=== PATIENT | female | born 1985 | race American Indian/Alaskan Native ===

== ENCOUNTER 2019-03-07 18:18 | Emergency (ER) | payer BC ==
--- NOTE | 2019-03-07 18:27 | Event Note ---
ED Screening Note Date of service: 03/07/19 Time: 18:22 ED Screening Note: 33 y/o female comes in for head injury and left arm pain s/p fall off horse. This initial assessment/diagnostic orders/clinical plan/treatment(s) is/are subject to change based on patients health status, clinical progression and re- assessment by fellow clinical providers in the ED. Further treatment and workup at subsequent clinical providers discretion. Patient/guardian urged not to elope from the ED as their condition may be serious if not clinically assessed and managed. Initial orders include:
[2019-03-07] MEDS ORDERED: PERCOCET 5/325 PO ONE (18:29)
--- NOTE | 2019-03-07 19:06 | XRay Report ---
HISTORY: Pain and swelling distal forearm COMPARISON: None. TECHNIQUE: 2 views FINDINGS: Bones: No fracture or dislocation. Joint spaces: Maintained. Soft tissues: No significant abnormality. Additional findings: None. IMPRESSION: 1. No significant abnormality. Signer Name: Nicolas Vann MD Signed: 03/07/2019 7:01 PM Workstation Name: [id number]
--- NOTE | 2019-03-07 19:39 | Cat Scan Report ---
CT CERVICAL SPINE WITHOUT CONTRAST INDICATION / CLINICAL INFORMATION: Trauma. Patient fell sustaining neck injury. Neck pain. TECHNIQUE: Axial CT images were obtained through the cervical spine. Sagittal and coronal reformatted images wer e produced. All CT scans at this location are performed using CT dose reduction for ALARA by means of automated exposure control. COMPARISON: None available. FINDINGS: OVERVIEW: There is no indication of fracture or traumatic subluxation. ALIGNMENT: Loss of the normal cervical lordosis is noted. Patient's head is tilted towards the left. No additional abnormalities of alignment are identified. VERTEBRAE: Incidental note is made of incomplete posterior arch of C1 vertebral body. This is on a de velopmental basis. Vertebral morphology is otherwise fairly well-maintained. DISC SPACES: Disc height is fairly well-maintained throughout the cervical region. INDIVIDUAL LEVEL ANALYSIS: C2-3:No abnormality. C3-4:No abnormality. C4-5: Small posterior osteophyte lateralizes towards the right. Central spinal canal and neuroforamin a remain adequate in size. C5-6:No abnormality. C6-7:No abnormality. C7-T1:No abnormality. CRANIOCERVICAL JUNCTION:No significant abnormality. SPINAL CANAL: No indication of central canal stenosis. PARASPINAL SOFT TISSUES: No significant abnormality. LUNG APICES: No significant abnormality of visualized lungs. IMPRESSION: 1. No indication of fracture or traumatic subluxation. Signer Name: Daniel Haas MD Signed: 03/07/2019 7:34 PM Workstation Name: [id number]
--- NOTE | 2019-03-07 19:43 | Emergency Department Report ---
ED Fall HPI - General Chief Complaint: Fall Stated Complaint: FELL OFF HORSE/BODY PAIN Time Seen by Provider: 03/07/19 18:22 Source: patient Mode of arrival: Ambulatory - History of Present Illness Initial Comments: Patient is a 33-year-old female presents to the emergency room after a fall off a horse that occurred just prior to arrival. She was riding a horse up a hill when it began to start galloping and she fell off the horse. States she caught herself with her left hand and hit the left side of her face on the ground. She is complaining of left facial pain, left wrist, and left hand pain. she denies any loss of consciousness, weakness, numbness, vision changes, any other injuries. She states she has been ambulatory. Patient states that she also did experience bleeding from her lip. - Related Data Previous Rx's Medication Instructions Recorded Last Taken Type Baclofen [Lioresal] 10 mg PO QHS PRN #10 tab 03/07/19 Unknown Rx Butalb/Acetaminophen/Caffeine 1 cap PO Q8HR PRN #14 cap 03/07/19 Unknown Rx [Fioricet 50-300-40 mg CAP] traMADol [Ultram 50 MG tab] 50 mg PO Q6HR PRN #7 tablet 03/07/19 Unknown Rx Allergies Allergy/AdvReac Type Severity Reaction Status Date / Time latex Allergy Itching Verified 03/07/19 18:21 ED Review of Systems ROS: Stated complaint: FELL OFF HORSE/BODY PAIN Other details as noted in HPI Comment: All other systems reviewed and negative ED Past Medical Hx - Past Medical History Hx Pulmonary Embolism: Yes (2014) - Social History Smoking Status: Never Smoker Substance Use Type: None - Medications Home Medications: Home Medications Medication Instructions Recorded Confirmed Last Taken Type Baclofen [Lioresal] 10 mg PO QHS PRN #10 tab 03/07/19 Unknown Rx Butalb/Acetaminophen/Caffeine 1 cap PO Q8HR PRN #14 cap 03/07/19 Unknown Rx [Fioricet 50-300-40 mg CAP] traMADol [Ultram 50 MG tab] 50 mg PO Q6HR PRN #7 tablet 03/07/19 Unknown Rx ED Physical Exam - General Limitations: No Limitations General appearance: alert, in no apparent distress - Head Head exam: Present: normocephalic, other (mild TTP over the left maxilla, no deformity, no crepitus, small abrasion to the inside of the lower lip consitent with teeth moreira, no laceration, no loose teeth, FROM of the mandible ) - Eye Eye exam: Present: normal appearance, PERRL, EOMI. Absent: periorbital swelling, periorbital tenderness - ENT ENT exam: Present: mucous membranes moist - Neck Neck exam: Present: normal inspection, full ROM. Absent: tenderness - Respiratory Respiratory exam: Present: normal lung sounds bilaterally. Absent: respiratory distress, wheezes, rales, rhonchi, stridor, chest wall tenderness, accessory muscle use, decreased breath sounds, prolonged expiratory - Cardiovascular Cardiovascular Exam: Present: regular rate, normal rhythm, normal heart sounds. Absent: systolic murmur, diastolic murmur, rubs, gallop - Extremities Exam Extremities exam: Present: other (TTP over the left medial wrist, no deformity, no TTP of the left hand or fingers, no snuffbox tenderness, 2+ radial pulse, sensation intact) - Back Exam Back exam: Present: normal inspection, full ROM. Absent: paraspinal tenderness, vertebral tenderness - Neurological Exam Neurological exam: Present: alert, oriented X3, CN II-XII intact, normal gait. Absent: motor sensory deficit - Psychiatric Psychiatric exam: Present: normal affect, normal mood - Skin Skin exam: Present: warm, dry, intact ED Course Vital Signs 03/07/19 21:18 Temperature 98.8 F Pulse Rate 83 Respiratory 12 Rate Blood Pressure 118/65 [Right] O2 Sat by Pulse 99 Oximetry ED Medical Decision Making - Radiology Data Radiology results: report reviewed HISTORY: Pain and swelling distal forearm COMPARISON: None. TECHNIQUE: 2 views FINDINGS: Bones: No fracture or dislocation. Joint spaces: Maintained. Soft tissues: No significant abnormality. Additional findings: None. IMPRESSION: 1. No significant abnormality. Signer Name: Nicolas Vann MD Signed: 03/07/2019 7:01 PM Workstation Name: [id number] Transcribed By: YAN Dictated By: Nicolas Vann MD Electronically Authenticated By: Nicolas Vann MD Signed Date/Time: 03/07/[address] CERVICAL SPINE WITHOUT CONTRAST INDICATION / CLINICAL INFORMATION: Trauma. Patient fell sustaining neck injury. Neck pain. TECHNIQUE: Axial CT images were obtained through the cervical spine. Sagittal and coronal reformatted images were produced. All CT scans at this location are performed using CT dose reduction for ALARA by means of automated exposure control. COMPARISON: None available. FINDINGS: OVERVIEW: There is no indication of fracture or traumatic subluxation. ALIGNMENT: Loss of the normal cervical lordosis is noted. Patient's head is tilted towards the left. No additional abnormalities of alignment are identified. VERTEBRAE: Incidental note is made of incomplete posterior arch of C1 vertebral body. This is on a developmental basis. Vertebral morphology is otherwise fairly well-maintained. DISC SPACES: Disc height is fairly well-maintained throughout the cervical region. INDIVIDUAL LEVEL ANALYSIS: C2-3:No abnormality. C3-4:No abnormality. C4-5: Small posterior osteophyte lateralizes towards the right. Central spinal canal and neuroforamina remain adequate in size. C5-6:No abnormality. C6-7:No abnormality. C7-T1:No abnormality. CRANIOCERVICAL JUNCTION:No significant abnormality. SPINAL CANAL: No indication of central canal stenosis. PARASPINAL SOFT TISSUES: No significant abnormality. LUNG APICES: No significant abnormality of visualized lungs. IMPRESSION: 1. No indication of fracture or traumatic subluxation. Signer Name: Daniel Haas MD Signed: 03/07/2019 7:34 PM Workstation Name: [id number] Transcribed By: Dictated By: Daniel Haas MD Electronically Authenticated By: Daniel Haas MD Signed Date/Time: 03/07/191933 CLINICAL DATA: MAIN: facial pain. FELL FROM HORSE. TECHNICAL DATA: CT imaging of the facial bones was performed with images presented in the coronal, axial, and sagittal imaging planes. All CT scans at this location are performed using CT dose reduction for ALARA by means of automated exposure control. FINDINGS: The facial bones are intact without evidence of fracture. The paranasal sinuses are clear and aerated. Partially imaged mastoids are clear. The temporomandibular joints and mandible are unremarkable to the extent of visualization allowed by this technique. The teeth appear grossly unremarkable. The orbits are unremarkable with globes being intact. Extraocular muscles, optic nerves, and retroorbital fat are normal. IMPRESSION: Normal facial bone CT. Signer Name: Nicolas Vann MD Signed: 03/07/2019 8:16 PM Workstation Name: [id number] Transcribed By: WG Dictated By: Nicolas Vann MD Electronically Authenticated By: Nicolas Vann MD Signed Date/Time: 03/07/192015 CT HEAD WITHOUT CONTRAST INDICATION / CLINICAL INFORMATION: head injury fall horse. TECHNIQUE: All CT scans at this location are performed using CT dose reduction for ALARA by means of automated exposure control. COMPARISON: None available. FINDINGS: HEMORRHAGE: No evidence of intracranial hemorrhage or extra-axial fluid collection. EXTRA-AXIAL SPACES: Cortical sulci, sylvian fissures and basilar cisterns have an unremarkable appearance. VENTRICULAR SYSTEM: The ventricular system is of normal size and configuration. CEREBRAL PARENCHYMA: No areas of abnormal brain parenchymal attenuation are identified. There is no indication of recent infarction. MIDLINE SHIFT OR HERNIATION: There is no mass effect. CEREBELLUM / BRAINSTEM: Brainstem and cerebellum have an unremarkable appearance. INTRACRANIAL VESSELS:No abnormalities are identified on this noncontrast head CT. ORBITS: visualized portions of the orbits have an unremarkable appearance. SOFT TISSUES of HEAD: No significant abnormality. CALVARIUM: Evaluation of bone windows reveals no abnormalities. PARANASAL SINUSES / MASTOID AIR CELLS: An 11 mm diameter retention cyst or polyp is seen in the medial aspect of the left sphenoid sinus. Paranasal sinuses are otherwise free from inflammatory mucosal disease. Frontal sinuses are hypoplastic in this individual. Mastoid air cells are normally pneumatized. IMPRESSION: 1. Negative head CT without contrast. Signer Name: Daniel Haas MD Signed: 03/07/2019 7:40 PM Workstation Name: [id number] Transcribed By: Dictated By: Daniel Haas MD Electronically Authenticated By: Daniel Haas MD Signed Date/Time: 03/07/191939 - Medical Decision Making Patient is a 33-year-old female presents to the emergency room after a fall off a horse that occurred just prior to arrival. She was riding a horse up a hill when it began to start galloping and she fell off the horse. States she caught herself with her left hand and hit the left side of her face on the ground. She is complaining of left facial pain, left wrist, and left hand pain. she denies any loss of consciousness, weakness, numbness, vision changes, any other injuries. She states she has been ambulatory. Patient states that she also did experience bleeding from her lip. vitals are normal. on exam: mild TTP over the left maxilla, no deformity, no crepitus, small abrasion to the inside of the lower lip consitent with teeth moreira, no laceration, no loose teeth, FROM of the mandible, TTP over the left medial wrist, no deformity, no TTP of the left hand or fingers, no snuffbox tenderness, 2+ radial pulse, sensation intact, no spinal TTP, no focal neuro deficits. XR of the left forearm, CT facial bones, CT head, CT cervical spine all with no acute process. pt given muscle relaxer, fioricet, and tramadol. advised to please take medications as prescribed as needed. Do not drive or operate heavy machinery while taking pain medication or muscle relaxer. Follow-up with the primary care doctor in the next 2-3 days for reevaluation. Return to the emergency room immediately if began experiencing any new or worsening symptoms. discussed with pt if begin experiencing worsening ALBERT, constant N/V, vision changes, lethargic, speech or gait disturbance, or any other new or worsening symptoms return immediately. - Differential Diagnosis strain, sprain, fx, dislocation, ICH, SDH, concussion Critical care attestation.: If time is entered above; I have spent that time in minutes in the direct care of this critically ill patient, excluding procedure time. ED Disposition Clinical Impression: Left wrist pain, Left facial pain Fall Qualifiers: Encounter type: initial encounter Qualified Code(s): W19.XXXA - Unspecified fall, initial encounter Head injury Qualifiers: Encounter type: initial encounter Qualified Code(s): S09.90XA - Unspecified injury of head, initial encounter Lip abrasion Qualifiers: Encounter type: initial encounter Qualified Code(s): S00.511A - Abrasion of lip, initial encounter Disposition: TO HOME OR SELFCARE Is pt being admited?: No Does the pt Need Aspirin: No Condition: Stable Instructions: Concussion (ED), Minor Head Injury (ED), Wrist Sprain (ED) Additional Instructions: Please take medications as prescribed as needed. Do not drive or operate heavy machinery while taking pain medication or muscle relaxer. Follow-up with the primary care doctor in the next 2-3 days for reevaluation. Return to the emergency room immediately if began experiencing any new or worsening symptoms. Prescriptions: Baclofen [Lioresal] 10 mg PO QHS PRN #10 tab PRN Reason: Muscle Spasm Butalb/Acetaminophen/Caffeine [Fioricet 50-300-40 mg CAP] 1 cap PO Q8HR PRN #14 cap PRN Reason: Headache traMADol [Ultram 50 MG tab] 50 mg PO Q6HR PRN #7 tablet PRN Reason: Pain , Severe (7-10) Referrals: [facility] [Provider Group] - 2-3 Days Time of Disposition: 20:47 Print Language: IRISH
--- NOTE | 2019-03-07 19:44 | Cat Scan Report ---
CT HEAD WITHOUT CONTRAST INDICATION / CLINICAL INFORMATION: head injury fall horse. TECHNIQUE: All CT scans at this location are performed using CT dose reduction for ALARA by means of automated e xposure control. COMPARISON: None available. FINDINGS: HEMORRHAGE: No evidence of intracranial hemorrhage or extra-axial fluid collection. EXTRA-AXIAL SPACES: Cortical sulci, sylvian fissures and basilar cisterns have an unremarkable appear ance. VENTRICULAR SYSTEM: The ventricular system is of normal size and configuration. CEREBRAL PARENCHYMA: No areas of abnormal brain parenchymal attenuation are identified. There is no i ndication of recent infarction. MIDLINE SHIFT OR HERNIATION: There is no mass effect. CEREBELLUM / BRAINSTEM: Brainstem and cerebellum have an unremarkable appearance. INTRACRANIAL VESSELS:No abnormalities are identified on this noncontrast head CT. ORBITS: visualized portions of the orbits have an unremarkable appearance. SOFT TISSUES of HEAD: No significant abnormality. CALVARIUM: Evaluation of bone windows reveals no abnormalities. PARANASAL SINUSES / MASTOID AIR CELLS: An 11 mm diameter retention cyst or polyp is seen in the media l aspect of the left sphenoid sinus. Paranasal sinuses are otherwise free from inflammatory mucosal d isease. Frontal sinuses are hypoplastic in this individual. Mastoid air cells are normally pneumatize d. IMPRESSION: 1. Negative head CT without contrast. Signer Name: Daniel Haas MD Signed: 03/07/2019 7:40 PM Workstation Name: [id number]
--- NOTE | 2019-03-07 20:20 | Cat Scan Report ---
CLINICAL DATA: MAIN: facial pain. FELL FROM HORSE. TECHNICAL DATA: CT imaging of the facial bones was performed with images presented in the coronal, axial, and sagitta l imaging planes. All CT scans at this location are performed using CT dose reduction for ALARA by means of automated exposure control. FINDINGS: The facial bones are intact without evidence of fracture. The paranasal sinuses are clear and aerate d. Partially imaged mastoids are clear. The temporomandibular joints and mandible are unremarkable to the extent of visualization allowed by this technique. The teeth appear grossly unremarkable. Th e orbits are unremarkable with globes being intact. Extraocular muscles, optic nerves, and retroorbi david fat are normal. IMPRESSION: Normal facial bone CT. Signer Name: Nicolas Vann MD Signed: 03/07/2019 8:16 PM Workstation Name: [id number]
[2019-03-07 21:19] VITALS: BP 118/65
== END 2019-03-07 21:16 | disposition home or self-care (01) ==
LOC: ED 18:18
DX: S00.511A Abrasion of lip, initial encounter (principal); S09.90XA Unspecified injury of head, initial encounter; M25.532 Pain in left wrist; M79.642 Pain in left hand; Z91.040 Latex allergy status; Z79.899 Other long term (current) drug therapy; Z86.711 Personal history of pulmonary embolism; W01.0XXA Fall on same level from slipping, tripping and stumbling without subsequent striking against object, initial encounter; Y93.52 Activity, horseback riding; Y92.39 Other specified sports and athletic area as the place of occurrence of the external cause; Y99.8 Other external cause status
CPT/HCPCS: 70450; 70486; 72125

== ENCOUNTER 2019-07-07 10:54 | Outpatient (CLI) | payer BC ==
[2019-07-07 11:30] LABS: Hematocrit 40.2 % (30.3-42.9); Hemoglobin 13.3 gm/dl (10.1-14.3); Mean Corpuscular HGB Conc 33 % (30-34); Mean Corpuscular Volume 84 fl (79-97); Platelet Count 267 K/mm3 (140-440); Red Blood Count 4.78 M/mm3 (3.65-5.03); Red Cell Distribution Width 15.5 % (13.2-15.2)
[2019-07-07 11:56] LABS: Alanine Aminotransferase 25 units/L (7-56); Albumin 4.5 g/dL (3.9-5); BUN/Creatinine Ratio 11; Blood Urea Nitrogen 9 mg/dL (7-17); Calcium 9.7 mg/dL (8.4-10.2); Chol/HDL Ratio 3.94 %; HDL Cholesterol 56 mg/dL (40-59); Hemolysis Index 0; LDL Cholesterol,Direct 150 mg/dL (50-130)
[2019-07-10 15:24] LABS: Vitamin D, 25-OH, D2 <4 ng/mL
== END 2019-07-07 10:55 | disposition home or self-care (01) ==
LOC: LAB 10:54
PROVIDERS: ATTEND Internal Medicine
DX: E11.65 Type 2 diabetes mellitus with hyperglycemia (principal); R53.83 Other fatigue; E78.2 Mixed hyperlipidemia; E55.9 Vitamin D deficiency, unspecified
CPT/HCPCS: 36415; 80053; 80061; 82306; 83036; 84443; 85027

== ENCOUNTER 2019-07-12 13:16 | Emergency (ER) | payer BC ==
[2019-07-12 13:24] VITALS: BP 121/74
== END 2019-07-12 14:45 | disposition home or self-care (01) ==
LOC: ED 13:16
DX: M79.10 Myalgia, unspecified site (principal); E11.9 Type 2 diabetes mellitus without complications; F17.200 Nicotine dependence, unspecified, uncomplicated; Z79.899 Other long term (current) drug therapy; Z91.040 Latex allergy status; V49.49XA Driver injured in collision with other motor vehicles in traffic accident, initial encounter; Y93.89 Activity, other specified; Y92.410 Unspecified street and highway as the place of occurrence of the external cause; Y99.8 Other external cause status

== ENCOUNTER 2020-05-06 08:33 | Outpatient (CLI) | payer BC | END 2020-05-06 08:34 | disposition home or self-care (01) | LOC: LAB 08:33 | PROVIDERS: ATTEND Internal Medicine | DX: Z91.018 Allergy to other foods (principal) | CPT/HCPCS: 36415 ==

== ENCOUNTER 2020-06-21 11:25 | Outpatient (CLI) | payer BC ==
--- NOTE | 2020-06-21 17:53 | Mammography Report ---
DIGITAL SCREENING MAMMOGRAM WITH CAD, 06/21/2020 CLINICAL INFORMATION / INDICATION: Routine screening mammography. SCREENING MAMMO TECHNIQUE: Digital bilateral 2D mammography was obtained in the craniocaudal and mediolateral obliqu e projections. This examination was interpreted with the benefit of Computer-Aided Detection analysis . COMPARISON: None currently available. FINDINGS: Breast Density: There are scattered areas of fibroglandular density. No dominant mass, suspicious calcifications, or architectural distortion in either breast. IMPRESSION: No mammographic evidence of malignancy. Follow up recommendation: Unless otherwise clinically indicated, recommend patient return to routine screening mammography at age 38. BI-RADS Category 1: Negative. A "normal" or negative report should not discourage follow up or biopsy of a clinically significant f inding. A written summary of these findings will be mailed to the patient. The patient will be entered into a mammography reporting system which will generate a reminder letter for the patient's next appointmen t at the appropriate interval. The [employer] recommends yearly mammograms starting at age 40 and continuing as l danika as a woman is in good health. Breast MRI is recommended for women with an approximate 20-25% or greater lifetime risk of breast cancer, including women with a strong family history of breast or ova minda cancer or who have been treated for Hodgkin's disease. Signer Name: Neymar Martinez MD Signed: 06/21/2020 5:49 PM Workstation Name: [email or web address]
== END 2020-06-21 11:26 | disposition home or self-care (01) ==
LOC: MAMMO 11:25
PROVIDERS: ATTEND Internal Medicine
DX: Z12.31 Encounter for screening mammogram for malignant neoplasm of breast (principal); N64.89 Other specified disorders of breast
CPT/HCPCS: 77067